=== PATIENT | male | born 1960 | race Caucasian/White ===

== ENCOUNTER 2022-12-18 10:51 | Emergency (ER) | payer OTHER, BC, SELFPAY ==
--- NOTE | 2022-12-18 10:54 | ED.EYEPROB ---
HPI - Eye Problem General Chief complaint: Eye Problems Stated complaint: left eye Time Seen by Provider: 12/18/22 10:54 Source: patient and RN notes reviewed History of Present Illness HPI Narrative: Patient is 62-year-old male who presents to urgent care with complaints of a painful itchy bump to the left eyelid. Patient states he noticed it on Sunday and the swelling has worsened. Patient has been using cool compresses. Denies any injury or vision change. No other acute complaints. No acute distress noted. Patient aware of the plan of care. Some parts of this dictation were generated by voice recognition software and may contain typographical and/or grammatical inaccuracies. Related Data Home Medications Medication Instructions Recorded Confirmed carvedilol 3.125 mg tablet 3.125 mg PO BID 12/18/22 12/18/22 chlorthalidone 25 mg tablet 25 mg PO DAILY 12/18/22 12/18/22 clopidogrel 75 mg tablet 75 mg PO DAILY 12/18/22 12/18/22 esomeprazole magnesium 40 mg 40 mg PO DAILY 12/18/22 12/18/22 capsule,delayed release ezetimibe 10 mg tablet 10 mg PO DAILY 12/18/22 12/18/22 lisinopril 40 mg tablet 40 mg PO DAILY 12/18/22 12/18/22 spironolactone 25 mg tablet 25 mg PO DAILY 12/18/22 12/18/22 Allergies Allergy/AdvReac Type Severity Reaction Status Date / Time No Known Allergies Allergy Unknown Verified 12/18/22 11:06 Review of Systems Review of Systems: CONSTITUTIONAL: Denies fever, chills, or sweats. EYES: Reports of a painful tender swollen lump on the left upper eyelid ENT: Denies rhinorrhea, congestion, sore throat, or otalgia. CARDIOVASCULAR: Denies chest pain, palpitations, or edema. RESPIRATORY: Denies cough or dyspnea. GASTROINTESTINAL: Denies abdominal pain, nausea, vomiting, or diarrhea. GENITOURINARY: Denies dysuria or hematuria. SKIN: Denies rash or itching. MUSCULOSKELETAL: Denies back pain, joint pain, or myalgia. NEUROLOGIC: Denies headache, numbness, or weakness. All other systems reviewed are negative, except as documented in HPI. PMFSH Comments At the time of my signature, I reviewed and agree with the nursing past medical, surgical, social, and family history. There is no relevant family history pertinent to the patient complaint. Exam Narrative: GENERAL: This is a well-nourished, well-developed patient, in no apparent distress. HEAD: normocephalic, atraumatic. EYES: PERRL. Sclera clear/white. Vision is grossly intact. Moderate erythema with moderate stye to the midline left upper eyelid with mild edema and tenderness EARS: External ears normal, auditory canals clear and without drainage, TMs normal without perforation. Hearing grossly intact. NOSE: External nose normal with no obvious nasal discharge, nares without redness, no rhinorrhea. THROAT: Mucous membranes moist, posterior pharynx clear. NECK: Neck supple SKIN: warm, intact with no suspicious lesions or rash, good texture and turgor. NEURO: awake, alert, and oriented to person, place and time. There were no obvious focal neurologic abnormalities. EXTREMITIES: No clubbing, cyanosis, or edema. Course Course Level of Care: Express Care Visit Vital Signs Vital signs: Vital Signs Temperature 98.1 F 12/18/22 11:00 Pulse Rate 84 12/18/22 11:00 Respiratory Rate 20 12/18/22 11:00 Blood Pressure 166/63 H 12/18/22 11:00 Pulse Oximetry 100 12/18/22 11:00 Oxygen Delivery Room Air 12/18/22 11:00 Temperature 98.1 F 12/18/22 11:00 Pulse Rate 84 12/18/22 11:00 Respiratory Rate 20 12/18/22 11:00 Blood Pressure 166/63 H 12/18/22 11:00 Pulse Oximetry 100 12/18/22 11:00 Oxygen Delivery Room Air 12/18/22 11:00 Reviewed- Patient is informed that they may have pre-hypertension or hypertension based on a blood pressure reading in the department. I recommend the patient call the primary care provider listed on their discharge instructions or a physician of their choice this week to arrange follow-up for further evalu
[2022-12-18 11:00] VITALS: BP 166/63; PULSE 84; RESP 20; TEMP 36.7; O2SAT 100
== END 2022-12-18 11:24 | disposition home or self-care (01) ==
PROVIDERS: Emergency Provider Nurse Practitioner Family; PCP Physician Assistant
DX: H00.014 Hordeolum externum left upper eyelid (principal)
CPT/HCPCS: 99213; G0463

== ENCOUNTER 2024-01-24 10:01 | Emergency (ER) | payer OTHER, BC, SELFPAY ==
[2024-01-24 10:16] VITALS: BP 124/64; PULSE 99; RESP 16; TEMP 36.7; O2SAT 99
--- NOTE | 2024-01-24 11:00 | ED.SKABFB ---
HPI - Skin/Abscess/Foreign Bdy General Chief complaint: Skin/Abscess/Foreign Body Stated complaint: Rash Time Seen by Provider: 01/24/24 10:46 Source: patient, RN notes reviewed and old records reviewed Mode of arrival: ambulatory Limitations: no limitations History of Present Illness HPI narrative: 63-year-old male to Express Care for complaint of rash for 1 month. patient reports seeing his PCP a few weeks ago and being prescribed a cream that only helps temporarily upon application. Patient denies worsening rash or new symptoms. Rash diffusely over entire back and sporadically over abdomen. Patient endorsing urticaria. Patient denies exposure to new products, pets, or environmental irritants. Patient denies cough, shortness of breath, sore throat or any other complaints at this time. Related Data Home Medications Medication Instructions Recorded Confirmed carvedilol 3.125 mg tablet 3.125 mg PO BID 12/18/22 12/18/22 chlorthalidone 25 mg tablet 25 mg PO DAILY 12/18/22 12/18/22 clopidogrel 75 mg tablet 75 mg PO DAILY 12/18/22 12/18/22 esomeprazole magnesium 40 mg 40 mg PO DAILY 12/18/22 12/18/22 capsule,delayed release ezetimibe 10 mg tablet 10 mg PO DAILY 12/18/22 12/18/22 lisinopril 40 mg tablet 40 mg PO DAILY 12/18/22 12/18/22 spironolactone 25 mg tablet 25 mg PO DAILY 12/18/22 12/18/22 amlodipine 10 mg tablet mg 01/24/24 clonidine HCl 0.1 mg tablet mg 01/24/24 fluocinonide 0.05 % topical cream applic topical 01/24/24 Allergies Allergy/AdvReac Type Severity Reaction Status Date / Time No Known Allergies Allergy Unknown Verified 01/24/24 10:03 Review of Systems Review of Systems: All systems reviewed & are unremarkable except as noted in HPI and below Constitutional: Constitutional: Reports as per HPI and Denies fever(s) Eyes: Eyes: Reports no additional eye complaints ENT: Reports system reviewed and no additional complaints, except as documented Cardiovascular: Cardiovascular: Reports no additional cardiovascular complaints, Denies chest pain and Denies dyspnea Respiratory: Respiratory: Reports no additional respiratory complaints, Denies cough and Denies dyspnea Musculoskeletal: Musculoskeletal: Reports no additional musculoskeletal complaints Integumentary/Breasts: Skin/Breast: Reports as per HPI and Reports rash Neurologic: Reports system reviewed and no additional complaints, except as documented Psychiatric: Psychiatric: Reports no additional psychiatric complaints PMFSH Comments At the time of my signature, I reviewed and agree with the nursing past medical, surgical, social, and family history. There is no relevant family history pertinent to the patient complaint. Exam Const: General: cooperative, healthy appearing, comfortable, no acute distress, alert and well nourished Nutritional Appearance: well nourished Orientation/consciousness: patient oriented x3 Limitations: no limitations HENMT: Head: normal to inspection Ears: external ears normal Face/Nose/Sinus: Normal external nose present, Normal nares present, normal facial exam, No erythema and No edema Face and sinus: normal facial exam, no erythema and no edema Mouth: Yes Normal oral and palatal mucosa present Eyes: General: appearance normal, both eyes and all related structures Neck: Neck: normal visual inspection, full ROM and no meningeal signs Lymphatic: no lymphadenopathy noted and no lymphedema noted Chest: Chest palpation & inspection: normal inspection of the chest Resp: Effort & Inspection: normal respiratory effort and able to speak in complete sentences Auscultation: clear to auscultation bilaterally Cardio: Jugular venous distension: no JVD Rate: regular rate Rhythm: regular rhythm Back/Spine/Pelvis: Cervical Spine: cervical ROM normal Skin: General skin exam: turgor normal and rashes ( Diffusely across back; sporadically on abdomen) Neuro: General: patient oriented x3, gait normal, moves all ex
== END 2024-01-24 11:17 | disposition home or self-care (01) ==
PROVIDERS: Emergency Provider Nurse Practitioner Family; PCP Physician Assistant
DX: L30.9 Dermatitis, unspecified (principal); I25.10 Atherosclerotic heart disease of native coronary artery without angina pectoris; E78.00 Pure hypercholesterolemia, unspecified; I73.9 Peripheral vascular disease, unspecified; Z95.5 Presence of coronary angioplasty implant and graft; Z95.820 Peripheral vascular angioplasty status with implants and grafts; Z86.73 Personal history of transient ischemic attack (TIA), and cerebral infarction without residual deficits
CPT/HCPCS: 99213; G0463